=== PATIENT | female | born 1950 | race African-American/Black ===

== ENCOUNTER 2018-05-06 01:03 | Emergency (ER) | payer MEDICARE ==
[2018-05-06 01:37] LABS: Hemoglobin 11.4 g/dL (12.0-16.0)
[2018-05-06 01:38] LABS: INR-International Normal Ratio 3.4; Prothrombin Time 34.5 SEC (12.0-14.7)
[2018-05-06] MEDS ORDERED: Oxymetazoline HCl 0.05% ( 15 ML ) ONE (03:05)
== END 2018-05-06 04:32 | disposition short-term general hospital (02) ==
LOC: MADERS 01:03
DX: R04.0 Epistaxis (principal); I11.0 Hypertensive heart disease with heart failure; I50.9 Heart failure, unspecified; I48.91 Unspecified atrial fibrillation; E11.9 Type 2 diabetes mellitus without complications; E78.5 Hyperlipidemia, unspecified; Z79.899 Other long term (current) drug therapy; Z79.01 Long term (current) use of anticoagulants
CPT/HCPCS: 30903; 85014; 85018; 85610